=== PATIENT | female | born 1980 | race Caucasian/White ===

== ENCOUNTER 2016-07-18 18:57 | Emergency (ER) | payer BC, MEDICAID ==
[~2016-07-18] VITALS: Ht 172.7 cm; Wt 91.9 kg
[~2016-07-18 18:57] MED LIST: AMIT100 PO; GABA300C3 PO; PROM25SU8 PO; WELL150T PO
[2016-07-18 19:08] VITALS: BP 121/83; PULSE 92; RESP 15; TEMP 98.3; O2SAT 99
--- NOTE | 2016-07-18 19:13 | PD ---
HPI Chief Complaint: Eye Problems/Injury Time Seen by Provider: 19:13 Travel History International Travel<30 days: No Contact w/Intl Traveler<30days: No Traveled to known affect area: No History of Present Illness HPI 36-year-old female presents the emergency department with extensive history of upper respiratory type symptoms including a, postnasal drip, sore throat, sinus congestion, and right eye irritation and redness since yesterday. Patient is unsure she's had a fever but has felt unwell for the past week. She feels it is worse in the last 24 hours. Patient is a young child who had conjunctivitis proximal June 2 weeks ago. Patient denies significant cough or chest pain. She has no nausea, vomiting, or diarrhea. She has no known drug allergies. PFSH Past Medical History Asthma: Yes Anxiety: Yes Depression: Yes Diminished Hearing: No Gastrointestinal Disorders: Yes (GALLSTONES) GERD: Yes Genitourinary: Yes (KIDNEY STONES) Respiratory: Yes (ashtma) Immunizations Current: Yes Migraines: Yes ?: Not LMP: 4-17 : 2 Para: 1 : 1 Past Surgical History Section: Yes Cholecystectomy: Yes Gynecologic Surgery: Yes (2 SEPARATE EXPLORATORY LAP'S AND 2 HYSTEROSCOPIES) Social History Alcohol Use: Yes (SOCIAL) Tobacco Use: Yes (02/28PPD) Substance Use: No Allergies-Medications (Allergen,Severity, Reaction): Coded Allergies: No Known Allergies (Unverified , 07/18/16) Reported Meds & Prescriptions Reported Meds & Active Scripts Active No Active Prescriptions or Reported Medications Review of Systems Except as stated in HPI: all other systems reviewed are Neg General / Constitutional: No: Fever Eyes: No: Visual changes HENT: Positive: Headaches, Sore Throat, Rhinitis, Rhinorrhea, Congestion, No: Vertigo, Lightheadedness, Nosebleed, Neck Stiffness, Neck Pain, Gingival Bleeding, Dental Difficulties, Ear Discharge, Earache Cardiovascular: No: Chest Pain or Discomfort Respiratory: Positive: Cough, No: Shortness of Breath, Wheezing Gastrointestinal: No: Nausea, Vomiting, Diarrhea, Abdominal Pain Genitourinary: No: Dysuria Musculoskeletal: No: Pain Skin: No Rash Neurologic: No: Weakness Psychiatric: No: Depression Endocrine: No: Polydipsia Hematologic/Lymphatic: No: Easy Bruising Physical Exam Narrative GENERAL: Patient appears in mild distress. SKIN: Warm and dry. Normal color. Normal turgor. HEAD: Atraumatic. Normocephalic. Patient has bilateral moderate to severe frontal and maxillary sinus tenderness with percussion and palpation. EYES: Pupils equal and round. No scleral icterus. Mild right-sided conjunctival injection without drainage. ENT: No nasal bleeding or discharge. Mucous membranes pink and moist. Posterior pharynx is somewhat erythematous and injected with cobblestoning and postnasal drip present. A somewhat dull bilaterally but no injection. NECK: Trachea midline. Supple and nontender. CARDIOVASCULAR: Regular rate and rhythm. RESPIRATORY: No accessory muscle use. Clear to auscultation. Breath sounds equal bilaterally. GASTROINTESTINAL: Abdomen soft, non-tender, nondistended. Hepatic and splenic margins not palpable. MUSCULOSKELETAL: Extremities without clubbing, cyanosis, or edema. No obvious deformities. NEUROLOGICAL: Awake and alert. No obvious cranial nerve deficits. Motor grossly within normal limits. Five out of 5 muscle strength in the arms and legs. Normal speech. PSYCHIATRIC: Appropriate mood and affect; insight and judgment normal. Data Data Last Documented VS Vital Signs Date Time Temp Pulse Resp B/P Pulse Ox O2 Delivery O2 Flow Rate FiO2 07/18/16 19:08 98.3 92 15 121/83 99 Orders Amoxicil-Clavulanate (Augmentin) (07/18/16 19:30) [facility] Medical Decision Making Medical Screen Exam Complete: Yes Emergency Medical Condition: Yes Differential Diagnosis Sinusitis. Conjunctivitis. Postnasal drip. Narrative Course Patient is medically stable at time of exam. Patient is given Augmentin 875 by mouth now. Patient will be treated with Augmentin 875 twice a day 10 days. Patient also given Flonase nasal spray 2 sprays each nostril daily. Patient also given Maxitrol ophthalmic drops to the right eye as directed for 7 days. Patient also given ibuprofen 600 mg 4 times a day when necessary headache #40. Patient follow up with her primary care physician or return to the ED if symptoms worsen. Work note is given. Diagnosis Primary Impression: Sinusitis, acute Qualified Code: J01.40 - Acute non-recurrent pansinusitis Additional Impression: Conjunctivitis Qualified Code: H10.31 - Acute conjunctivitis of right eye, unspecified acute conjunctivitis type Referrals: Primary Care Physician Patient Instructions: Conjunctivitis (ED), General Instructions, Sinusitis (ED) Departure Forms: Work Release Enter return to work date: July 20, 2016 Additional Instructions: Patient is medically stable at time of exam. Patient is given Augmentin 875 by mouth now. Patient will be treated with Augmentin 875 twice a day 10 days. Patient also given Flonase nasal spray 2 sprays each nostril daily. Patient also given Maxitrol ophthalmic drops to the right eye as directed for 7 days. Patient also given ibuprofen 600 mg 4 times a day when necessary headache #40. Patient follow up with her primary care physician or return to the ED if symptoms worsen. Work note is given. Scripts Ibuprofen 600 Mg Pwm083 Mg PO Q6H PRN (Pain/Inflammation) #40 TAB Prov:Ana Hines MD 07/18/16 Fluticasone Nasal Kathleen (Flonase Allergy Relief Children Nasal Kathleen)50 Mcg/Act Spray2 Kathleen EACH NARE DAILY #1 BOTTLE 50 mcg/spray Prov:Ana Hines MD 07/18/16 Amoxicillin 875 Mg Eym302 Mg PO BID #20 TAB Prov:Ana Hines MD 07/18/16 Disposition: 01 DISCHARGE HOME Condition: Stable Wes Colvin July 18, 2016 19:13
[2016-07-18] MEDS ORDERED: AMOX875T PO (19:22)
[2016-07-18] MEDS ORDERED: FLUT1SPR9 EACH NARE (19:22)
[2016-07-18] MEDS ORDERED: IBUP-232 PO (19:22)
[2016-07-18] MEDS ORDERED: MAXI5O EACH EYE (19:28)
[2016-07-18] MEDS ORDERED: AMOXICILLIN/CLAVULANATE K 875 MG TAB PO ONE (19:30)
== END 2016-07-18 19:49 | disposition home or self-care (01) ==
LOC: PHEFT 18:57
DX: J01.90 Acute sinusitis, unspecified (principal); H10.9 Unspecified conjunctivitis; R09.82 Postnasal drip; R51 Headache; R05 Cough; J45.909 Unspecified asthma, uncomplicated; J21.9 Acute bronchiolitis, unspecified; F41.9 Anxiety disorder, unspecified; F17.200 Nicotine dependence, unspecified, uncomplicated
CPT/HCPCS: 99283

== ENCOUNTER 2016-10-19 16:49 | Emergency (ER) | payer MEDICAID ==
[~2016-10-19] VITALS: Ht 172.7 cm; Wt 86.9 kg
[~2016-10-19 16:49] MED LIST changes: -AMIT100 PO; +AMOX875T PO; +FLUT1SPR9 EACH NARE; -GABA300C3 PO; +IBUP-232 PO; +MAXI5O EACH EYE; -PROM25SU8 PO; -WELL150T PO
[2016-10-19 17:05] VITALS: BP 124/63; PULSE 101; RESP 20; TEMP 98.7; O2SAT 98
[2016-10-19] MEDS ORDERED: ZOLO100T PO (18:25)
[2016-10-19] MEDS ORDERED: WELLTAB39 PO (18:25)
[2016-10-19] MEDS ORDERED: PROCHLORPERAZINE INJ 10 MG/2 ML VIAL IM ONE (18:45)
[2016-10-19] MEDS ORDERED: KETOROLAC TROMETHAMINE 60 MG/2 ML (IM) VIAL IM ONE (18:45)
[2016-10-19] MEDS ORDERED: BUTA1CAP2 PO (18:48)
[2016-10-19] MEDS ORDERED: ZOFR4TAB3 SL (18:48)
--- NOTE | 2016-10-19 18:54 | PD ---
HPI Chief Complaint: Head Injury Time Seen by Provider: 18:33 Travel History International Travel<30 days: No Contact w/Intl Traveler<30days: No Traveled to known affect area: No History of Present Illness HPI while walking in garage, didn't pay attention that garage door was low and walked into it bumping her forehead...10/04, no radiologist, no loc, no anticoagulant, noted a cut to her forehead. patient ambulatory and brought herself to emergency dept [facility] Past Medical History Asthma: Yes Anxiety: Yes Depression: Yes Diminished Hearing: No Gastrointestinal Disorders: Yes (GALLSTONES) GERD: Yes Genitourinary: Yes (KIDNEY STONES) Respiratory: Yes (ashtma) Immunizations Current: Yes Migraines: Yes Tetanus Vaccination: < 5 Years Influenza Vaccination: Yes ?: Not : 2 Para: 1 : 1 Past Surgical History Section: Yes Cholecystectomy: Yes Gynecologic Surgery: Yes (2 SEPARATE EXPLORATORY LAP'S AND 2 HYSTEROSCOPIES) Social History Alcohol Use: Yes (SOCIAL) Tobacco Use: Yes (02/28PPD) Substance Use: No Allergies-Medications (Allergen,Severity, Reaction): Coded Allergies: No Known Allergies (Unverified , 10/19/16) Reported Meds & Prescriptions Reported Meds & Active Scripts Active Reported Wellbutrin Xl 24 HR (Bupropion HCl) 300 Mg Tab 300 Mg PO DAILY Zoloft (Sertraline HCl) 100 Mg Tab 300 Mg PO DAILY Review of Systems Except as stated in HPI: all other systems reviewed are Neg HENT: Positive: Headaches Skin: Positive Other (laceration to forehead) Physical Exam Narrative GENERAL: SKIN: Warm and dry. HEAD: . Normocephalic. mid forehead has a vertical 3cm laceration superficial involving epidermis only EYES: Pupils equal and round. No scleral icterus. No injection or drainage. ENT: No nasal bleeding or discharge. Mucous membranes pink and moist...no hemotympanum NECK: Trachea midline. No JVD. CARDIOVASCULAR: Regular rate and rhythm. RESPIRATORY: No accessory muscle use. Clear to auscultation. Breath sounds equal bilaterally. GASTROINTESTINAL: Abdomen soft, non-tender, nondistended. Hepatic and splenic margins not palpable. MUSCULOSKELETAL: Extremities without clubbing, cyanosis, or edema. No obvious deformities. NEUROLOGICAL: Awake and alert. No obvious cranial nerve deficits. Motor grossly within normal limits. Five out of 5 muscle strength in the arms and legs. Normal speech. PSYCHIATRIC: Appropriate mood and affect; insight and judgment normal. Data Data Last Documented VS Vital Signs Date Time Temp Pulse Resp B/P (MAP) Pulse Ox O2 Delivery O2 Flow Rate FiO2 10/19/16 17:05 98.7 101 20 124/63 (83) 98 Room Air Orders Orders Prochlorperazine Inj (Compazine Inj) (10/19/16 18:45) Ketorolac Inj (Toradol Inj) (10/19/16 18:45) [facility] Medical Decision Making Medical Screen Exam Complete: Yes Emergency Medical Condition: Yes Medical Record Reviewed: Yes Differential Diagnosis scalp contusion v laceration v skull fx Narrative Course after palpation no stepoff, no crepitus. after repair of laceration, patient continue to be neurologically intact and pain is greatly reduced. Procedures Procedure Narrative LACERATION LOCATION: [mid forehead] LENGTH: [3 cm] NUMBER OF STITCHES/VI: [dermabond] REPAIR: The area of the laceration was prepped with Betadine and sterilely draped. The laceration was infiltrated with [n/a]. The wound was copiously irrigated and explored without evidence of foreign body, tendon injury or neurovascular injury. The wound was closed using [dermabond]. This was a [ single] layer repair. A sterile dressing was applied. The patient was advised to keep the dressing clean and dry. Patient tolerated the procedure well. Diagnosis Primary Impression: forehead laceration s/p dermabond Additional Impression: Contusion of scalp, initial encounter Patient Instructions: General Instructions, Scalp Contusion in Adults (ED), Skin Adhesive Care (ED) Scripts Ondansetron Odt (Zofran Odt) 4 Mg Tab 4 MG SL Q8HR Y for Nausea/Vomiting, #20 TAB 0 Refills Prov: Gary Hinds MD 10/19/16 Tpijlwcnon-Yupxvliinieel-Vmcgrgas-Codeine (Fioricet-Codeine) 05-801-20-30 Mg Cap 1-2 CAP PO Q4H Y for HEADACHE, #14 CAP 0 Refills Do not exceed 6 capsules/day. Prov: Gary Hinds MD 10/19/16 Disposition: 01 DISCHARGE HOME Condition: Stable Gary Hinds MD Oct 19, 2016 18:54
[2016-10-19 19:30] VITALS: BP 124/74
== END 2016-10-19 19:30 | disposition home or self-care (01) ==
LOC: PHED 16:49 → PHEFT 19:30
DX: S01.81XA Laceration without foreign body of other part of head, initial encounter (principal); W22.8XXA Striking against or struck by other objects, initial encounter; F17.210 Nicotine dependence, cigarettes, uncomplicated; J45.909 Unspecified asthma, uncomplicated; Z90.49 Acquired absence of other specified parts of digestive tract; Z87.442 Personal history of urinary calculi
CPT/HCPCS: 12013; 96372; 99284; J0780; J1885

== ENCOUNTER 2017-05-10 20:10 | Emergency (ER) | payer OTHER ==
[~2017-05-10] VITALS: Ht 172.7 cm; Wt 97.2 kg
[~2017-05-10 20:10] MED LIST changes: -AMOX875T PO; +BUTA1CAP2 PO; -FLUT1SPR9 EACH NARE; -IBUP-232 PO; -MAXI5O EACH EYE; +WELLTAB39 PO; +ZOFR4TAB3 SL; +ZOLO100T PO
[2017-05-10 20:15] VITALS: BP 139/80; PULSE 109; RESP 12; TEMP 98.4; O2SAT 95
[2017-05-10] MEDS ORDERED: OXYC1TAB63 PO (20:23)
--- NOTE | 2017-05-10 20:24 | PD ---
HPI Chief Complaint: Pain: Acute or Chronic Time Seen by Provider: 20:24 Travel History International Travel<30 days: No Contact w/Intl Traveler<30days: No Traveled to known affect area: No History of Present Illness HPI 37-year-old female history of sciatica presents to emergency department for evaluation of acute onset exacerbation since this morning. Patient states she recently had an ablation and has been on greater bed rest. She thinks may have exacerbated her symptoms. Pain is severe, intermittently sharp in her right lower back radiating to her buttock and leg. No fever or chills. No saddle paresthesia, loss of bowel or bladder, no lower extremity weakness. Patient has no other symptoms to report. PFSH Past Medical History Asthma: Yes Anxiety: Yes Depression: Yes Diminished Hearing: No Gastrointestinal Disorders: Yes (GALLSTONES) GERD: Yes Genitourinary: Yes (KIDNEY STONES) Respiratory: Yes (asthma ) Immunizations Current: Yes Migraines: Yes Tetanus Vaccination: < 5 Years Influenza Vaccination: No ?: Not LMP: 04/28/17 : 2 Para: 1 : 1 Past Surgical History Section: Yes Cholecystectomy: Yes Gynecologic Surgery: Yes (2 SEPARATE EXPLORATORY LAP'S AND 2 HYSTEROSCOPIES endometrial ablation) Social History Alcohol Use: Yes (SOCIAL) Tobacco Use: Yes () Substance Use: No Allergies-Medications (Allergen,Severity, Reaction): Coded Allergies: No Known Allergies (Unverified Adverse Reaction, Unknown, 05/10/17) Reported Meds & Prescriptions Reported Meds & Active Scripts Active Medrol Dosepak (Methylprednisolone) 4 Mg Dspk 4 Mg PO DIRECTED Per Pharmacist direction Reported Oxycodone-Acetaminophen 5-325 mg Tab 1 Tab PO Q6H PRN Wellbutrin Xl 24 HR (Bupropion HCl) 300 Mg Tab 300 Mg PO DAILY Review of Systems Except as stated in HPI: all other systems reviewed are Neg Physical Exam Narrative GENERAL: Well-nourished female patient, ambulatory with an antalgic gait no acute distress SKIN: Focused skin assessment warm/dry. HEAD: Atraumatic. Normocephalic. EYES: Pupils equal and round. No scleral icterus. No injection or drainage. ENT: No nasal bleeding or discharge. Mucous membranes pink and moist. NECK: Trachea midline. No JVD. CARDIOVASCULAR: Regular rate and rhythm. No murmur appreciated. RESPIRATORY: No accessory muscle use. Clear to auscultation. Breath sounds equal bilaterally. GASTROINTESTINAL: Abdomen soft, non-tender, nondistended. Hepatic and splenic margins not palpable. MUSCULOSKELETAL: No obvious deformities. No clubbing. No cyanosis. No edema. Positive straight leg test on right.. Distal pulses are palpable. Cap refill within normal limits. NEUROLOGICAL: Awake and alert. No obvious cranial nerve deficits. Motor grossly within normal limits. Normal speech. PSYCHIATRIC: Appropriate mood and affect; insight and judgment normal. Data Data Last Documented VS Vital Signs Date Time Temp Pulse Resp B/P (MAP) Pulse Ox O2 Delivery O2 Flow Rate FiO2 05/10/17 20:15 98.4 109 12 139/80 (99) 95 Orders Orders Ketorolac Inj (Toradol Inj) (05/10/17 20:30) Orphenadrine Inj (Norflex Inj) (05/10/17 20:30) Ed Discharge Order (05/10/17 21:06) Dexamethasone Inj (Decadron Inj) (05/10/17 21:15) [facility] Medical Decision Making Medical Screen Exam Complete: Yes Emergency Medical Condition: Yes Medical Record Reviewed: Yes Differential Diagnosis Sciatica versus low back strain versus discogenic pain versus radiculopathy Narrative Course 37-year-old female presents to emergency department for evaluation of exacerbation of sciatica. Physical history are consistent with sciatica. There is no midline tenderness. No focal deficits or weakness. Patient is treated for pain. She has Percocet at home that I advise she take in addition to her Medrol Dosepak. Patient is driving himself so she will only receive nonnarcotic emergency department. She verbalizes understanding. She agrees to return immediately with any acute worsening of symptoms. Diagnosis Primary Impression: Sciatic leg pain Referrals: Primary Care Physician Patient Instructions: General Instructions, Sciatica (ED) Departure Forms: Tests/Procedures, Work Release Enter return to work date: May 13, 2017 Additional Instructions: Ice to the affected area Follow-up with primary care provider Avoid activity that exacerbates pain Avoid prolonged bedrest Return immediately with any acute worsening symptoms Med/Other Pt SpecificInfo: Prescription(s) given Scripts Methylprednisolone Dosepak (Medrol Dosepak) 4 Mg Dspk 4 MG PO DIRECTED, #1 DSPK 0 Refills Per Pharmacist direction Prov: Nan Stein 05/10/17 Disposition: 01 DISCHARGE HOME Condition: Stable Nan Stein May 10, 2017 20:24
[2017-05-10] MEDS ORDERED: KETOROLAC TROMETHAMINE 60 MG/2 ML (IM) VIAL IM ONE (20:30)
[2017-05-10] MEDS ORDERED: ORPHENADRINE INJ 60 MG/2 ML AMP IM ONE (20:30)
[2017-05-10] MEDS ORDERED: MEDR4PAK PO (21:08)
[2017-05-10] MEDS ORDERED: DEXAMETHASONE SOD PHOS 20 MG/5 ML VIAL IM ONE (21:15)
[2017-05-10 21:34] VITALS: RESP 16
== END 2017-05-10 21:38 | disposition home or self-care (01) ==
LOC: PHEFT 20:10
DX: M54.41 Lumbago with sciatica, right side (principal); K21.9 Gastro-esophageal reflux disease without esophagitis; F41.8 Other specified anxiety disorders; F17.200 Nicotine dependence, unspecified, uncomplicated; Z87.442 Personal history of urinary calculi; Z87.09 Personal history of other diseases of the respiratory system; Z87.19 Personal history of other diseases of the digestive system
CPT/HCPCS: 96372; 99283; J1100; J1885; J2360

== ENCOUNTER 2017-07-11 15:19 | Emergency (ER) | payer OTHER ==
[~2017-07-11] VITALS: Ht 172.7 cm; Wt 96.0 kg
[~2017-07-11 15:19] MED LIST changes: -BUTA1CAP2 PO; +MEDR4PAK PO; +OXYC1TAB63 PO; -ZOFR4TAB3 SL; -ZOLO100T PO
[2017-07-11 15:30] VITALS: BP 163/57; PULSE 90; RESP 17; TEMP 98.9; O2SAT 98
--- NOTE | 2017-07-11 15:58 | PD ---
HPI Chief Complaint: Back/ Neck Pain or Injury Time Seen by Provider: 15:40 Travel History International Travel<30 days: No Contact w/Intl Traveler<30days: No Traveled to known affect area: No History of Present Illness HPI This is a 37-year-old female history of sciatica here with right-sided sciatica pain 4 days. No injury or trauma. She reports she receives spinal injections for pain. Her last injection was 7 days ago. She reports her sciatica pain has been constant despite the injection. Does not endorse worsening after injection. She was seen by her pain management doctor yesterday for continued sciatic pain and was prescribed gabapentin. She reports gabapentin does not improve her pain and was unhappy with that visit. Denies history of IV drug abuse. She denies fever, incontinence, saddle anesthesia, paresthesia or weakness of the extremities. Symptom severity is moderate. Aggravated by movement and relieved with rest. PFSH Past Medical History Asthma: Yes Anxiety: Yes Depression: Yes Diminished Hearing: No Gastrointestinal Disorders: Yes (GALLSTONES) GERD: Yes Genitourinary: Yes (KIDNEY STONES) Respiratory: Yes (asthma ) Immunizations Current: Yes Migraines: Yes ?: Not LMP: UTERINE ABLATION : 2 Para: 1 : 1 Past Surgical History Section: Yes Cholecystectomy: Yes Gynecologic Surgery: Yes (2 SEPARATE EXPLORATORY LAP'S AND 2 HYSTEROSCOPIES endometrial ablation) Social History Alcohol Use: Yes (SOCIAL) Tobacco Use: Yes (02/28PPD) Substance Use: No Allergies-Medications (Allergen,Severity, Reaction): Coded Allergies: No Known Allergies (Unverified Adverse Reaction, Unknown, 07/11/17) Reported Meds & Prescriptions Reported Meds & Active Scripts Active Reported Wellbutrin Xl 24 HR (Bupropion HCl) 300 Mg Tab 300 Mg PO DAILY Review of Systems Except as stated in HPI: all other systems reviewed are Neg General / Constitutional: No: Fever Physical Exam Narrative GENERAL: Alert and well-appearing 37-year-old female. Ambulating with a steady gait in no distress SKIN: Warm and dry. HEAD: Normocephalic. EYES: No injection or drainage. NECK: Supple CARDIOVASCULAR: Regular rate and rhythm. RESPIRATORY: No accessory muscle use. Clear to auscultation. Breath sounds equal bilaterally. GASTROINTESTINAL: Abdomen soft, non-tender, nondistended. MUSCULOSKELETAL: Extremities without clubbing, cyanosis, or edema. No obvious deformities. NEUROLOGICAL: Awake and alert. No obvious cranial nerve deficits. Motor grossly within normal limits. Five out of 5 muscle strength in the arms and legs. Normal sensation with sharp dull differentiation in lower extremities. Positive straight leg raise on the right. BACK: No point tenderness on palpation of the spine. No CVA tenderness. + Tenderness over the right sacroiliac region into the right gluteal. Data Data Last Documented VS Vital Signs Date Time Temp Pulse Resp B/P (MAP) Pulse Ox O2 Delivery O2 Flow Rate FiO2 07/11/17 15:30 98.9 90 17 163/57 (92) 98 Orders Orders Ketorolac Inj (Toradol Inj) (07/11/17 16:00) Dexamethasone Inj (Decadron Inj) (07/11/17 16:00) Orphenadrine Inj (Norflex Inj) (07/11/17 16:00) [facility] Medical Decision Making Medical Screen Exam Complete: Yes Emergency Medical Condition: Yes Differential Diagnosis Sciatica, discogenic pain, acute on chronic pain, spinal epidural abscess/ hematoma clinically unlikely Narrative Course 37-year-old female here with sciatic pain. She has a history of sciatica and reports this is similar to her prior flares. Her physical exam is reassuring. She ambulates with a steady gait. She is no midline spine tenderness. She is afebrile. She has a normal neurologic exam. She had favorable outcomes at her last visit with Toradol, Decadron, Norflex. This was provided again at today's visit. Diagnosis Primary Impression: Sciatica Qualified Codes: M54.31 - Sciatica, right side Referrals: Pain Management Scripts Methocarbamol (Robaxin) 750 Mg Tab 750 MG PO QID for Muscle Spasm, #12 TAB 0 Refills Prov: Demetrice Washington 07/11/17 Methylprednisolone Dosepak (Medrol Dosepak) 4 Mg Dspk 4 MG PO DIRECTED, #1 DSPK 0 Refills Per Pharmacist direction Prov: Demetrice Washington 07/11/17 Disposition: 01 DISCHARGE HOME Condition: Stable Demetrice Washington July 11, 2017 15:58
[2017-07-11] MEDS ORDERED: DEXAMETHASONE SOD PHOS 4 MG/ML VIAL IM ONE (16:00)
[2017-07-11] MEDS ORDERED: KETOROLAC TROMETHAMINE 60 MG/2 ML (IM) VIAL IM ONE (16:00)
[2017-07-11] MEDS ORDERED: ORPHENADRINE INJ 60 MG/2 ML AMP IM ONE (16:00)
[2017-07-11] MEDS ORDERED: ROBA750T PO (16:04)
[2017-07-11] MEDS ORDERED: MEDR4PAK PO (16:04)
== END 2017-07-11 16:25 | disposition home or self-care (01) ==
LOC: PHEFT 15:19
DX: M54.31 Sciatica, right side (principal); J45.909 Unspecified asthma, uncomplicated; F32.9 Major depressive disorder, single episode, unspecified; F41.9 Anxiety disorder, unspecified; K21.9 Gastro-esophageal reflux disease without esophagitis; F17.200 Nicotine dependence, unspecified, uncomplicated
CPT/HCPCS: 96372; 99283; J1100; J1885; J2360